=== PATIENT | female | born 1950 | race Caucasian/White ===

== ENCOUNTER 2018-09-05 04:47 | Emergency (ER) | payer BC, MEDICARE ==
[~2018-09-05] VITALS: Ht 167.6 cm; Wt 59.5 kg
[~2018-09-05 04:47] MED LIST: DYR50; FELO10TA; LISI10TA2
[2018-09-05 04:57] VITALS: Ht 167.6 cm; Wt 59.5 kg
[2018-09-05] MEDS ORDERED: morphine 2 MG INJ IV ONE (05:14)
[2018-09-05] MEDS ORDERED: ONDANSETRON 4 MG INJ IV STA (05:41)
[2018-09-05] MEDS ORDERED: HYDROmorphONE 0.5 MG/0.5 ML SYG IV STA (05:41)
--- NOTE | 2018-09-05 05:44 | ERD ---
ER Documentation Chief Complaint Chief Complaint Left arm pain s/p fell off toilet d/t missaimed; elbow deformity, -ko HPI This is a 68-year-old female with a prior history of stage IV small cell cancer. Who presents for mechanical fall, she also to clinic, and landed on her left arm. Triage note states deformity, however no deformities appreciated, she has no point tenderness, but the elbow is painful with movement, she endorses pain all over her arm. She states that she did hit her head, but had no loss of consciousness. She lives with her . ROS All systems reviewed and are negative except as per history of present illness. Medications Home Meds Reported Medications Lisinopril* (Lisinopril*) 10 Mg Tablet 05/26/10 Triamterene* (Dyrenium*) 50 Mg Cap 05/26/10 Felodipine* (Felodipine*) 10 Mg Tab.sr.24h 05/26/10 Allergies Allergies: Coded Allergies: No Known Allergy (Verified Allergy, Mild, 05/26/10) PMhx/Soc History of Surgery: No Anesthesia Reaction: No Hx Neurological Disorder: No Hx Respiratory Disorders: No Hx Cardiac Disorders: Yes (HYPERTENSION) Hx Psychiatric Problems: No Hx Miscellaneous Medical Probl: Yes (STAGE IV LUNG CANCER ) Hx Alcohol Use: Yes (DRANK 2 BOTTLES OF WINE) Hx Substance Use: No Hx Tobacco Use: No Smoking Status: Never smoker Physical Exam Vitals Vital Signs Date Temp Pulse Resp B/P (MAP) Pulse Ox O2 O2 Flow FiO2 Time Delivery Rate 09/05/18 97.7 100 20 153/102 98 04:57 (119) Physical Exam Const: No acute distress Head: Atraumatic Eyes: Normal Conjunctiva ENT: Normal External Ears, Nose and Mouth. Neck: Full range of motion. No meningismus. Resp: Clear to auscultation bilaterally Cardio: Regular rate and rhythm, no murmurs Abd: Soft, non tender, non distended. Normal bowel sounds Skin: No petechiae or rashes Back: No midline or flank tenderness Ext: No cyanosis, or edema. There is no tenderness or deformity noted over the right shoulder, there is no axillary numbness, extension of the elbow is limited secondary to pain, there are no bony deformities, distally sensation is intact to light touch, radial pulses 2+, there is no snuffbox tenderness, compartments are soft and easily compressible. Neur: Awake and alert Psych: Normal Mood and Affect Results 24 hrs Current Medications Medications Dose Sig/Pritesh Start Time Status Last (Trade) Ordered Route PRN Stop Time Admin Dose Reason Admin Morphine 2 mg ONCE ONCE 09/05/18 DC 09/05/18 Sulfate IV 05:14 09/05/18 05:24 (morphine) 05:15 0.5 mg ONCE STAT 09/05/18 DC 09/05/18 Hydromorphone IV 05:41 09/05/18 05:46 HCl 05:42 (Dilaudid) Ondansetron 4 mg ONCE STAT 09/05/18 DC HCl (Zofran IV 05:41 09/05/18 Inj) 05:42 Procedures/MDM 68-year-old female presents for evaluation of mechanical fall. On exam patient had no evidence of external trauma, pain with extension to the elbow, she had no signs of abrasions or lacerations. Given reported fall, with possible head trauma CT brain was ordered which was negative for acute findings, she had no neck pain or C-spine tenderness, no indication for C-spine imaging. X-rays of the shoulder, elbow and wrist were performed, these were negative for acute findings. Patient stated that she had pain medication at home and felt com fortable with discharge. At discharge she was in no distress. Departure Diagnosis: Primary Impression: Elbow pain Laterality: unspecified laterality Qualified Codes: M25.529 - Pain in unspecified elbow Condition: Stable Patient Instructions: Contusion, Elbow, Sprain Elbow NILS JONES MD Sep 05, 2018 05:44
[2018-09-05 06:40] VITALS: BP 153/89; PULSE 71; RESP 18
== END 2018-09-05 08:09 | disposition home or self-care (01) ==
LOC: E/R 04:47
DX: M25.522 Pain in left elbow (principal); I10 Essential (primary) hypertension; Z85.118 Personal history of other malignant neoplasm of bronchus and lung
CPT/HCPCS: 70450; 73030; 73080; 73110; 96374; 96375; 99285; J1170; J2270; J2405